=== PATIENT | female | born 1965 | race Two or more races ===

== ENCOUNTER 2017-04-27 08:30 | Emergency (ER) | payer OTHER ==
[~2017-04-27] VITALS: Ht 162.6 cm; Wt 70.3 kg
[~2017-04-27 08:30] MED LIST: TUSSI-PRES LIQ118 ML PO
== END 2017-04-27 13:01 | disposition home or self-care (01) ==
LOC: ER 08:30
DX: R51 Headache (principal)

== ENCOUNTER 2017-06-22 05:03 | Emergency (ER) | payer OTHER ==
[~2017-06-22] VITALS: Ht 160 cm; Wt 68.9 kg
[2017-06-22] MEDS ORDERED: COZAAR100 MG (05:41)
== END 2017-06-22 12:34 | disposition home or self-care (01) ==
LOC: ER 05:03
DX: M94.0 Chondrocostal junction syndrome [Tietze] (principal); R07.89 Other chest pain